=== PATIENT | male | born 1955 | race Caucasian/White ===

== ENCOUNTER 2022-05-05 12:33 | Inpatient (IN) | payer OTHER ==
[~2022-05-05] VITALS: Ht 167.6 cm; Wt 113.0 kg
[2022-05-05 12:35] VITALS: BP_SYST 125
[2022-05-05 13:41] LABS: BASOPHILS # (AUTO) 0.2 K/uL (0.0-0.2); BASOPHILS % (AUTO) 0.5 % (0.0-2.0); HEMATOCRIT 39.6 % (36-54); HEMOGLOBIN 13.1 g/dL (14.0-18.0); LYMPHOCYTES # (AUTO) 0.5 K/uL (1.0-5.5); LYMPHOCYTES % (AUTO) 1.8 % (20.5-51.5); MEAN CORPUSCULAR HEMOGLOBIN 33 pg (27-31); MEAN CORPUSCULAR HGB CONC 33 % (32-36); MEAN CORPUSCULAR VOLUME 99 fL (79.0-98.0); MONOCYTES # (AUTO) 1.9 K/uL (0.0-1.0); MONOCYTES % (AUTO) 6.5 % (1.7-9.3); NEUTROPHILS # (AUTO) 26.2 K/uL (1.8-7.7); PLATELET COUNT (AUTO) 186 K/uL (130-430); RED BLOOD CELL COUNT(AUTO) 4.02 MIL/uL (4.2-6.2); RED CELL DISTRIBUTION WIDTH 18.7 % (9.0-15.0); WHITE BLOOD COUNT (AUTO) 28.8 K/uL (4.8-10.8)
[2022-05-05] MEDS ORDERED: cefTRIAXone 1 GM in D5W 50 ML IV ONE (14:00)
[2022-05-05] MEDS ORDERED: DOXYCYCLINE HYCLATE 100 MG CAPSULE PO ONE (14:00)
[2022-05-05 14:14] LABS: ANION GAP 13 (5-15); CALCIUM 7.4 mg/dL (8.4-11.0); CHLORIDE 107 mmol/L (98-107); CREATININE 1.37 mg/dL (0.55-1.30); GLUCOSE 153 mg/dL (70-99); SODIUM SERUM 137 mmol/L (136-145); UREA NITROGEN, BLOOD 40 mg/dL (8-21)
[2022-05-05] MEDS ORDERED: AZITHROMYCIN 500 MG in NS 250 ML IV SCH (14:15)
[2022-05-05] MEDS ORDERED: cefTRIAXone 1 GM IVPB PREMIX 50 ML IV SCH (14:15)
[2022-05-05 14:28] LABS: ALANINE AMINOTRANSFERASE 168 U/L (12-78); ALBUMIN 3.2 g/dL (3.4-4.8); ASPARTATE AMINOTRANSFERASE 78 U/L (10-37); GFR AFRICAN AMERICAN 67 mL/min (>90); LIPASE 85 U/L (73-393); TOTAL BILIRUBIN 0.3 mg/dL (0.0-1.0)
[2022-05-05] MEDS ORDERED: cefTRIAXone 1 GM VIAL ONE (14:39)
[2022-05-05] MEDS ORDERED: FURO-150 PO (14:43)
[2022-05-05] MEDS ORDERED: ASPIRIN 325 MG TABLET PO ONE (14:45)
[2022-05-05] MEDS ORDERED: NITROGLYCERIN 0.4 MG TAB.SUBL SL ONE (14:45)
[2022-05-05] MEDS ORDERED: FUROSEMIDE 40 MG/4 ML VIAL IVP ONE (14:45)
[2022-05-05] MEDS ORDERED: ASPI-1155 PO (14:48)
[2022-05-05] MEDS ORDERED: LIP40 PO (14:48)
[2022-05-05 14:58] LABS: NEUTROPHILS % (AUTO) 91.2 % (40.0-70.0)
[2022-05-05] MEDS ORDERED: AZITHROMYCIN 500 MG/VIAL (ZITHROMAX) IV ONE (15:20)
[2022-05-05 20:45] VITALS: BP_SYST 121
[2022-05-05 23:00] VITALS: BP_SYST 104
[2022-05-06] VITALS (16 sets, daily range): BP systolic 95–136
[2022-05-06 04:58] LABS: BARBITURATE, URINE NEGATIVE (NEG <=200); BENZODIAZEPINE, URINE NEGATIVE (NEG <=150); CANNABINOID, URINE NEGATIVE (NEG <=50); COCAINE, URINE NEGATIVE (NEG <=150); METHAMPHETAMINES SCREEN,URINE POSITIVE (NEG <=500); OPIATE, URINE NEGATIVE (NEG <=100); PHENCYCLIDINE SCREEN,URINE NEGATIVE (NEG <=25); UR TRICYCLIC ANTIDEPRESSANTS NEGATIVE (NEG <=300); URINE AMPHETAMINE POSITIVE (NEG <=500); URINE METHADONE NEGATIVE (NEG <=200); URINE OXYCODONE SCREEN NEGATIVE (NEG <=100); URINE PROPOXYPHENE SCREEN NEGATIVE (NEG <=300)
[2022-05-06 06:41] LABS: BASOPHILS % (AUTO) 0.2 % (0.0-2.0); HEMATOCRIT 40.1 % (36-54); HEMOGLOBIN 13.2 g/dL (14.0-18.0); LYMPHOCYTES % (AUTO) 4.5 % (20.5-51.5); MEAN CORPUSCULAR HEMOGLOBIN 33 pg (27-31); MEAN CORPUSCULAR HGB CONC 33 % (32-36); MEAN CORPUSCULAR VOLUME 99 fL (79.0-98.0); MONOCYTES # (AUTO) 1.2 K/uL (0.0-1.0); MONOCYTES % (AUTO) 5.8 % (1.7-9.3); NEUTROPHILS % (AUTO) 89.5 % (40.0-70.0); PLATELET COUNT (AUTO) 192 K/uL (130-430); RED BLOOD CELL COUNT(AUTO) 4.07 MIL/uL (4.2-6.2); RED CELL DISTRIBUTION WIDTH 18.8 % (9.0-15.0); WHITE BLOOD COUNT (AUTO) 21.2 K/uL (4.8-10.8)
[2022-05-06 07:26] LABS: ALBUMIN 3.2 g/dL (3.4-4.8); CREATININE 1.14 mg/dL (0.55-1.30); POTASSIUM 3.7 mmol/L (3.5-5.1); TOTAL BILIRUBIN 0.4 mg/dL (0.0-1.0)
[2022-05-06] MEDS ORDERED: NS 500 ML IV ONE (09:45)
[2022-05-06] MEDS ORDERED: THEOPHYLLINE ANHYDROUS 200 MG CAP.ER.24H PO ONE (10:00)
[2022-05-06] MEDS: NACL 0.9% 1,000 ML IV SCH ×2 (10:04→20:54)
[2022-05-06 10:26] LABS: FREE T4 (FREE THYROXINE) 0.8 ng/dl (0.8-1.5); THYROID STIMULATING HORMONE 0.94 uIu/mL (0.36-3.74)
[2022-05-06] MEDS: cefTRIAXone 1 GM IVPB PREMIX 50 ML IV SCH (10:51)
[2022-05-06] MEDS: AZITHROMYCIN 500 MG in NS 250 ML IV SCH (11:20)
[2022-05-06] MEDS: THEOPHYLLINE ANHYDROUS 200 MG CAP.ER.24H PO SCH ×2 (14:07→22:11)
[2022-05-06 22:19] LABS: BILIRUBIN,URINE NEGATIVE (NEGATIVE); BLOOD, URINE NEGATIVE (NEGATIVE); CLARITY/URINE CLEAR (CLEAR); COLOR,URINE YELLOW (YELLOW); GLUCOSE,URINE NEGATIVE (NEGATIVE); KETONES,URINE NEGATIVE (NEGATIVE); LEUKOCYTE ESTERASE ,URINE NEGATIVE (NEGATIVE); NITRITE, URINE NEGATIVE (NEGATIVE); PROTEIN URINE NEGATIVE (NEGATIVE); UROBILINOGEN,URINE 0.2 (0.2-1.0)
[2022-05-07] VITALS (22 sets, daily range): BP systolic 98–135
[2022-05-07] MEDS: THEOPHYLLINE ANHYDROUS 200 MG CAP.ER.24H PO SCH ×3 (06:15→22:06)
[2022-05-07] MEDS: NACL 0.9% 1,000 ML IV SCH ×2 (06:16→16:07)
[2022-05-07 07:01] LABS: BASOPHILS % (AUTO) 0.3 % (0.0-2.0); EOSINOPHILS % (AUTO) 0.1 % (0.0-4.0); HEMATOCRIT 36.1 % (36-54); LYMPHOCYTES # (AUTO) 1.3 K/uL (1.0-5.5); LYMPHOCYTES % (AUTO) 9.6 % (20.5-51.5); MEAN CORPUSCULAR HEMOGLOBIN 33 pg (27-31); MEAN CORPUSCULAR HGB CONC 33 % (32-36); MEAN CORPUSCULAR VOLUME 99 fL (79.0-98.0); MONOCYTES # (AUTO) 1.1 K/uL (0.0-1.0); MONOCYTES % (AUTO) 7.9 % (1.7-9.3); NEUTROPHILS # (AUTO) 11.4 K/uL (1.8-7.7); NEUTROPHILS % (AUTO) 82.1 % (40.0-70.0); PLATELET COUNT (AUTO) 160 K/uL (130-430); RED BLOOD CELL COUNT(AUTO) 3.67 MIL/uL (4.2-6.2); RED CELL DISTRIBUTION WIDTH 18.8 % (9.0-15.0); WHITE BLOOD COUNT (AUTO) 13.9 K/uL (4.8-10.8)
[2022-05-07 07:07] LABS: CREATININE 1.03 mg/dL (0.55-1.30); POTASSIUM 3.4 mmol/L (3.5-5.1)
[2022-05-07 07:22] LABS: ALBUMIN 2.8 g/dL (3.4-4.8); THYROID STIMULATING HORMONE 4.4 uIu/mL (0.36-3.74); TOTAL BILIRUBIN 0.3 mg/dL (0.0-1.0)
[2022-05-07 08:34] LABS: CALCIUM 6.4 mg/dL (8.4-11.0)
[2022-05-07 09:24] LABS: INR 1.2 (0.80-1.20); PROTHROMBIN TIME 12.1 SECS (9.5-12.5)
[2022-05-07] MEDS ORDERED: POTASSIUM CHLORIDE 20 MEQ/PKT PACKET PO ONE (10:00)
[2022-05-07] MEDS: cefTRIAXone 1 GM IVPB PREMIX 50 ML IV SCH (10:09)
[2022-05-07] MEDS: AZITHROMYCIN 500 MG in NS 250 ML IV SCH (11:16)
[2022-05-08] VITALS (13 sets, daily range): BP systolic 102–144
[2022-05-08] MEDS: NACL 0.9% 1,000 ML IV SCH ×2 (01:43→03:30)
[2022-05-08] MEDS: THEOPHYLLINE ANHYDROUS 200 MG CAP.ER.24H PO SCH ×2 (06:04→12:54)
[2022-05-08 06:59] LABS: BASOPHILS % (AUTO) 0.3 % (0.0-2.0); EOSINOPHILS % (AUTO) 0.2 % (0.0-4.0); HEMOGLOBIN 12.6 g/dL (14.0-18.0); LYMPHOCYTES # (AUTO) 1.2 K/uL (1.0-5.5); MEAN CORPUSCULAR HEMOGLOBIN 33 pg (27-31); MEAN CORPUSCULAR HGB CONC 33 % (32-36); MEAN CORPUSCULAR VOLUME 99 fL (79.0-98.0); MONOCYTES # (AUTO) 0.8 K/uL (0.0-1.0); MONOCYTES % (AUTO) 6.8 % (1.7-9.3); NEUTROPHILS # (AUTO) 9.9 K/uL (1.8-7.7); NEUTROPHILS % (AUTO) 82.7 % (40.0-70.0); PLATELET COUNT (AUTO) 151 K/uL (130-430); RED BLOOD CELL COUNT(AUTO) 3.86 MIL/uL (4.2-6.2); RED CELL DISTRIBUTION WIDTH 18.5 % (9.0-15.0)
[2022-05-08 07:46] LABS: CREATININE 0.9 mg/dL (0.55-1.30); POTASSIUM 3.5 mmol/L (3.5-5.1)
[2022-05-08 07:57] LABS: ALBUMIN 2.8 g/dL (3.4-4.8); TOTAL BILIRUBIN 0.6 mg/dL (0.0-1.0)
[2022-05-08] MEDS ORDERED: LORazepam 1 MG TABLET PO PRN (08:45)
[2022-05-08 08:47] LABS: CALCIUM 6.3 mg/dL (8.4-11.0)
[2022-05-08] MEDS ORDERED: PHENYLEPHRINE HCL 0.5% NASAL 15 ML NASPR NS SCH (10:00)
[2022-05-08] MEDS: AZITHROMYCIN 500 MG in NS 250 ML IV SCH (10:59)
[2022-05-08] MEDS: cefTRIAXone 1 GM IVPB PREMIX 50 ML IV SCH (10:59)
== END 2022-05-08 18:30 | disposition short-term general hospital (02) | DRG 871 ==
LOC: SED 12:33 → STU 14:13 → SIC 20:50 → STU 20:50 → SIC 05-06 09:37
PROVIDERS: ADMIT Internal Medicine; ATTEND Internal Medicine
DX: A41.9 Sepsis, unspecified organism (principal); I21.A1 Myocardial infarction type 2; N17.0 Acute kidney failure with tubular necrosis; J18.9 Pneumonia, unspecified organism; I44.2 Atrioventricular block, complete; E44.0 Moderate protein-calorie malnutrition; Z68.41 Body mass index [BMI] 40.0-44.9, adult; I11.0 Hypertensive heart disease with heart failure; E66.01 Morbid (severe) obesity due to excess calories; Z20.822 Contact with and (suspected) exposure to COVID-19; F15.10 Other stimulant abuse, uncomplicated; E78.00 Pure hypercholesterolemia, unspecified; I50.9 Heart failure, unspecified; Z59.02 Unsheltered homelessness; Z86.16 Personal history of COVID-19; Z79.899 Other long term (current) drug therapy; Z79.82 Long term (current) use of aspirin; R65.20 Severe sepsis without septic shock
CPT/HCPCS: 36415; 71045; 80048; 80053; 80307; 81003; 83605; 83690; 83880; 84439; 84443; 84484; 85025; 85379; 85610-TC; 87040; 87086; 93005; 93306; 96365; 96368; 96375; 99291; G0378; J0456; J0696; J1940; J7050

== ENCOUNTER 2022-06-02 13:51 | Inpatient (IN) | payer OTHER ==
[~2022-06-02] VITALS: Ht 167.6 cm; Wt 97.5 kg
[~2022-06-02 13:51] MED LIST: ASPI-1155 PO; FURO-150 PO; LIP40 PO
[2022-06-02 13:55] VITALS: BP_SYST 92
[2022-06-02] MEDS ORDERED: NACL 0.9% 1,000 ML IV ONE (15:15)
[2022-06-02 15:17] LABS: HEMATOCRIT 42.8 % (36-54); HEMOGLOBIN 14.2 g/dL (14.0-18.0); MEAN CORPUSCULAR HEMOGLOBIN 33 pg (27-31); MEAN CORPUSCULAR HGB CONC 33 % (32-36); MEAN CORPUSCULAR VOLUME 98 fL (79.0-98.0); PLATELET COUNT (AUTO) 208 K/uL (130-430); RED BLOOD CELL COUNT(AUTO) 4.38 MIL/uL (4.2-6.2); WHITE BLOOD COUNT (AUTO) 23.3 K/uL (4.8-10.8)
[2022-06-02 15:21] LABS: CALCIUM 8.7 mg/dL (8.4-11.0); CREATININE 1.25 mg/dL (0.55-1.30); POTASSIUM 4.2 mmol/L (3.5-5.1)
[2022-06-02 15:27] LABS: ALBUMIN 3.3 g/dL (3.4-4.8); TOTAL BILIRUBIN 0.6 mg/dL (0.0-1.0)
[2022-06-02 15:46] LABS: BAND % (MANUAL) 8 % (0-6); BASOPHILS % (MANUAL) 0 % (0-2); EOSINOPHILS % (MANUAL) 1 % (0-7); LYMPHOCYTES % (MANUAL) 5 % (20-46); MONOCYTES % (MANUAL) 18 % (0-11)
[2022-06-02 17:44] LABS: BILIRUBIN,URINE NEGATIVE (NEGATIVE); BLOOD, URINE NEGATIVE (NEGATIVE); CLARITY/URINE CLEAR (CLEAR); COLOR,URINE YELLOW (YELLOW); GLUCOSE,URINE NEGATIVE (NEGATIVE); KETONES,URINE NEGATIVE (NEGATIVE); LEUKOCYTE ESTERASE ,URINE NEGATIVE (NEGATIVE); NITRITE, URINE NEGATIVE (NEGATIVE); PROTEIN URINE NEGATIVE (NEGATIVE); UROBILINOGEN,URINE 0.2 (0.2-1.0)
[2022-06-02] MEDS ORDERED: cefTRIAXone 2 GM VIAL ONE (18:13)
[2022-06-02] MEDS ORDERED: KCL 20 mEq in D5/0.45NS 1000mL 1,000 ML IV SCH (20:45)
[2022-06-03 00:24] VITALS: BP_SYST 111
[2022-06-03] MEDS ORDERED: KCL 20 mEq in D5/0.45NS 1000mL 1,000 ML IV ONE (02:15)
[2022-06-03] MEDS ORDERED: PIPERACILLIN/TAZOBACTAM 3.375 GM/VIAL (ZOSYN) IV ONE (02:31)
[2022-06-03] MEDS: ACETAMINOPHEN 325 MG TABLET PO PRN ×2 (02:42→08:10)
[2022-06-03] MEDS: PIPERACILLIN/TAZO 3.375/DEX-IS 50 ML IV SCH ×3 (02:44→17:16)
[2022-06-03 06:56] LABS: BASOPHILS # (AUTO) 0.2 K/uL (0.0-0.2); BASOPHILS % (AUTO) 0.9 % (0.0-2.0); EOSINOPHILS # (AUTO) 0.1 K/uL (0.0-0.4); EOSINOPHILS % (AUTO) 0.7 % (0.0-4.0); HEMATOCRIT 38.5 % (36-54); HEMOGLOBIN 13.1 g/dL (14.0-18.0); LYMPHOCYTES % (AUTO) 5.5 % (20.5-51.5); MEAN CORPUSCULAR HEMOGLOBIN 33 pg (27-31); MEAN CORPUSCULAR HGB CONC 34 % (32-36); MEAN CORPUSCULAR VOLUME 98 fL (79.0-98.0); MONOCYTES % (AUTO) 16.7 % (1.7-9.3); NEUTROPHILS # (AUTO) 13.6 K/uL (1.8-7.7); NEUTROPHILS % (AUTO) 76.2 % (40.0-70.0); PLATELET COUNT (AUTO) 181 K/uL (130-430); RED BLOOD CELL COUNT(AUTO) 3.95 MIL/uL (4.2-6.2); RED CELL DISTRIBUTION WIDTH 17.9 % (9.0-15.0); WHITE BLOOD COUNT (AUTO) 17.8 K/uL (4.8-10.8)
[2022-06-03 07:32] LABS: CALCIUM 8.1 mg/dL (8.4-11.0); CREATININE 0.86 mg/dL (0.55-1.30); POTASSIUM 3.9 mmol/L (3.5-5.1)
[2022-06-03 08:00] VITALS: BP_SYST 132
[2022-06-03] MEDS: ASPIRIN 81 MG TAB.CHEW PO SCH (08:08)
[2022-06-03] MEDS: FUROSEMIDE 20 MG TABLET PO SCH (08:08)
[2022-06-03 12:00] VITALS: BP_SYST 126
[2022-06-03] MEDS: KCL 20 mEq in D5/0.45NS 1000mL 1,000 ML IV SCH (15:00)
[2022-06-03 16:00] VITALS: BP_SYST 121
[2022-06-03] MEDS: CYCLOBENZAPRINE HCL 10 MG TABLET (FLEXERIL) PO PRN (16:47)
[2022-06-03 21:00] VITALS: BP_SYST 135
[2022-06-03] MEDS: ATORVASTATIN 20 MG TABLET PO SCH (21:17)
[2022-06-03] MEDS: ENOXAPARIN SODIUM 40 MG/0.4 ML SYRINGE SUBCUT SCH (21:17)
[2022-06-04 00:31] VITALS: BP_SYST 110
[2022-06-04] MEDS: PIPERACILLIN/TAZO 3.375/DEX-IS 50 ML IV SCH ×5 (01:08→23:04)
[2022-06-04] MEDS: KCL 20 mEq in D5/0.45NS 1000mL 1,000 ML IV SCH ×2 (06:18→17:10)
[2022-06-04 07:13] LABS: BASOPHILS # (AUTO) 0.1 K/uL (0.0-0.2); BASOPHILS % (AUTO) 0.8 % (0.0-2.0); EOSINOPHILS # (AUTO) 0.1 K/uL (0.0-0.4); HEMOGLOBIN 13.5 g/dL (14.0-18.0); LYMPHOCYTES # (AUTO) 1.1 K/uL (1.0-5.5); LYMPHOCYTES % (AUTO) 9.8 % (20.5-51.5); MEAN CORPUSCULAR HEMOGLOBIN 33 pg (27-31); MEAN CORPUSCULAR HGB CONC 34 % (32-36); MEAN CORPUSCULAR VOLUME 98 fL (79.0-98.0); MONOCYTES # (AUTO) 1.4 K/uL (0.0-1.0); MONOCYTES % (AUTO) 12.3 % (1.7-9.3); NEUTROPHILS # (AUTO) 8.6 K/uL (1.8-7.7); NEUTROPHILS % (AUTO) 76.1 % (40.0-70.0); PLATELET COUNT (AUTO) 195 K/uL (130-430); RED BLOOD CELL COUNT(AUTO) 4.09 MIL/uL (4.2-6.2); RED CELL DISTRIBUTION WIDTH 18.3 % (9.0-15.0); WHITE BLOOD COUNT (AUTO) 11.2 K/uL (4.8-10.8)
[2022-06-04 07:49] LABS: CREATININE 0.8 mg/dL (0.55-1.30)
[2022-06-04 08:02] VITALS: BP_SYST 98
[2022-06-04] MEDS: ASPIRIN 81 MG TAB.CHEW PO SCH (08:29)
[2022-06-04] MEDS: FUROSEMIDE 20 MG TABLET PO SCH (08:30)
[2022-06-04] MEDS: CYCLOBENZAPRINE HCL 10 MG TABLET (FLEXERIL) PO PRN ×2 (08:34→21:59)
[2022-06-04 11:59] VITALS: BP_SYST 95
[2022-06-04 15:51] VITALS: BP_SYST 99
[2022-06-04 21:00] VITALS: BP_SYST 132
[2022-06-04] MEDS: ATORVASTATIN 20 MG TABLET PO SCH (21:59)
[2022-06-04] MEDS: ENOXAPARIN SODIUM 40 MG/0.4 ML SYRINGE SUBCUT SCH (21:59)
[2022-06-04 23:00] VITALS: BP_SYST 132
[2022-06-05] VITALS: BP_SYST 135
[2022-06-05] MEDS: PIPERACILLIN/TAZO 3.375/DEX-IS 50 ML IV SCH ×3 (05:12→17:14)
[2022-06-05] MEDS: KCL 20 mEq in D5/0.45NS 1000mL 1,000 ML IV SCH ×2 (05:14→21:19)
[2022-06-05 07:07] LABS: CALCIUM 8.8 mg/dL (8.4-11.0); CREATININE 0.92 mg/dL (0.55-1.30); POTASSIUM 3.9 mmol/L (3.5-5.1)
[2022-06-05 07:08] LABS: EOSINOPHILS # (AUTO) 0.1 K/uL (0.0-0.4); EOSINOPHILS % (AUTO) 1.4 % (0.0-4.0); HEMATOCRIT 41.4 % (36-54); HEMOGLOBIN 14.2 g/dL (14.0-18.0); LYMPHOCYTES # (AUTO) 1.1 K/uL (1.0-5.5); LYMPHOCYTES % (AUTO) 12.6 % (20.5-51.5); MEAN CORPUSCULAR HEMOGLOBIN 33 pg (27-31); MEAN CORPUSCULAR HGB CONC 34 % (32-36); MEAN CORPUSCULAR VOLUME 97 fL (79.0-98.0); MONOCYTES % (AUTO) 11.8 % (1.7-9.3); PLATELET COUNT (AUTO) 193 K/uL (130-430); RED BLOOD CELL COUNT(AUTO) 4.25 MIL/uL (4.2-6.2); WHITE BLOOD COUNT (AUTO) 8.6 K/uL (4.8-10.8)
[2022-06-05 07:23] LABS: BASOPHILS % (AUTO) 0.8 % (0.0-2.0); NEUTROPHILS % (AUTO) 73.4 % (40.0-70.0)
[2022-06-05 07:24] LABS: BASOPHILS # (AUTO) 0.1 K/uL (0.0-0.2); NEUTROPHILS # (AUTO) 6.3 K/uL (1.8-7.7)
[2022-06-05 08:00] VITALS: BP_SYST 140
[2022-06-05] MEDS: FUROSEMIDE 20 MG TABLET PO SCH (08:57)
[2022-06-05] MEDS: ASPIRIN 81 MG TAB.CHEW PO SCH (08:57)
[2022-06-05 12:00] VITALS: BP_SYST 125
[2022-06-05 16:00] VITALS: BP_SYST 125
[2022-06-05 20:00] VITALS: BP_SYST 125
[2022-06-05] MEDS: ATORVASTATIN 20 MG TABLET PO SCH (21:17)
[2022-06-05] MEDS: ENOXAPARIN SODIUM 40 MG/0.4 ML SYRINGE SUBCUT SCH (21:18)
[2022-06-06] VITALS: BP_SYST 110
[2022-06-06] MEDS: PIPERACILLIN/TAZO 3.375/DEX-IS 50 ML IV SCH ×2 (00:17→06:03)
[2022-06-06 04:00] VITALS: BP_SYST 118
[2022-06-06 08:00] VITALS: BP_SYST 120
[2022-06-06] MEDS: ASPIRIN 81 MG TAB.CHEW PO SCH (09:09)
[2022-06-06] MEDS: FUROSEMIDE 20 MG TABLET PO SCH (09:10)
[2022-06-06] MEDS: KCL 20 mEq in D5/0.45NS 1000mL 1,000 ML IV SCH (09:10)
[2022-06-06 12:00] VITALS: BP_SYST 120
[2022-06-06] MEDS: ceFAZolin SODIUM 1 GM in D5W 50 ML IV SCH ×2 (14:00→21:49)
[2022-06-06 16:00] VITALS: BP_SYST 120
[2022-06-06 20:00] VITALS: BP_SYST 103
[2022-06-06] MEDS: ATORVASTATIN 20 MG TABLET PO SCH (20:25)
[2022-06-06] MEDS: ENOXAPARIN SODIUM 40 MG/0.4 ML SYRINGE SUBCUT SCH (20:25)
[2022-06-06] MEDS: ACETAMINOPHEN 325 MG TABLET PO PRN (23:57)
[2022-06-07] VITALS: BP_SYST 110
[2022-06-07 04:00] VITALS: BP_SYST 114
[2022-06-07] MEDS: KCL 20 mEq in D5/0.45NS 1000mL 1,000 ML IV SCH ×3 (05:24→23:11)
[2022-06-07] MEDS: ceFAZolin SODIUM 1 GM in D5W 50 ML IV SCH ×3 (05:25→20:57)
[2022-06-07 08:10] VITALS: BP_SYST 107
[2022-06-07] MEDS: ASPIRIN 81 MG TAB.CHEW PO SCH (08:26)
[2022-06-07] MEDS: FUROSEMIDE 20 MG TABLET PO SCH (08:27)
[2022-06-07 12:00] VITALS: BP_SYST 110
[2022-06-07 16:00] VITALS: BP_SYST 105
[2022-06-07 20:00] VITALS: BP_SYST 102
[2022-06-07] MEDS: ATORVASTATIN 20 MG TABLET PO SCH (20:56)
[2022-06-07] MEDS: ENOXAPARIN SODIUM 40 MG/0.4 ML SYRINGE SUBCUT SCH (20:56)
[2022-06-08] VITALS (9 sets, daily range): BP systolic 12–123
[2022-06-08] MEDS: ceFAZolin SODIUM 1 GM in D5W 50 ML IV SCH ×3 (05:25→21:27)
[2022-06-08 06:31] LABS: BASOPHILS # (AUTO) 0.1 K/uL (0.0-0.2); BASOPHILS % (AUTO) 0.5 % (0.0-2.0); EOSINOPHILS # (AUTO) 0.1 K/uL (0.0-0.4); HEMOGLOBIN 13.7 g/dL (14.0-18.0); LYMPHOCYTES # (AUTO) 1.5 K/uL (1.0-5.5); LYMPHOCYTES % (AUTO) 14.7 % (20.5-51.5); MEAN CORPUSCULAR HEMOGLOBIN 33 pg (27-31); MEAN CORPUSCULAR HGB CONC 34 % (32-36); MEAN CORPUSCULAR VOLUME 98 fL (79.0-98.0); MONOCYTES # (AUTO) 1.2 K/uL (0.0-1.0); MONOCYTES % (AUTO) 12.3 % (1.7-9.3); NEUTROPHILS # (AUTO) 7.3 K/uL (1.8-7.7); NEUTROPHILS % (AUTO) 71.5 % (40.0-70.0); PLATELET COUNT (AUTO) 212 K/uL (130-430); RED BLOOD CELL COUNT(AUTO) 4.09 MIL/uL (4.2-6.2); RED CELL DISTRIBUTION WIDTH 17.9 % (9.0-15.0); WHITE BLOOD COUNT (AUTO) 10.1 K/uL (4.8-10.8)
[2022-06-08 08:00] LABS: ANION GAP 9 (5-15); C-REACTIVE PROTEIN QUANT 1.1 mg/dL (0-0.5); CALCIUM 8.5 mg/dL (8.4-11.0); CHLORIDE 104 mmol/L (98-107); CREATININE 0.78 mg/dL (0.55-1.30); GLUCOSE 90 mg/dL (70-99); POTASSIUM 3.7 mmol/L (3.5-5.1); SODIUM SERUM 139 mmol/L (136-145); UREA NITROGEN, BLOOD 11 mg/dL (8-21)
[2022-06-08 08:02] LABS: GFR AFRICAN AMERICAN 128 mL/min (>90)
[2022-06-08] MEDS: FUROSEMIDE 20 MG TABLET PO SCH (08:24)
[2022-06-08] MEDS: ASPIRIN 81 MG TAB.CHEW PO SCH (08:24)
[2022-06-08] MEDS ORDERED: NS 500 ML IV ONE (12:00)
[2022-06-08] MEDS: KCL 20 mEq in D5/0.45NS 1000mL 1,000 ML IV SCH (15:26)
[2022-06-08] MEDS: ENOXAPARIN SODIUM 40 MG/0.4 ML SYRINGE SUBCUT SCH (21:27)
[2022-06-08] MEDS: ATORVASTATIN 20 MG TABLET PO SCH (21:27)
== END 2022-06-08 23:42 | DRG 549 ==
LOC: SED 13:51 → SMU 20:38
PROVIDERS: ADMIT Family Medicine; ATTEND Family Medicine
DX: M00.9 Pyogenic arthritis, unspecified (principal); E44.1 Mild protein-calorie malnutrition; M60.851 Other myositis, right thigh; I10 Essential (primary) hypertension; E78.5 Hyperlipidemia, unspecified; M16.11 Unilateral primary osteoarthritis, right hip; E66.01 Morbid (severe) obesity due to excess calories; E78.00 Pure hypercholesterolemia, unspecified; E11.9 Type 2 diabetes mellitus without complications; Z20.822 Contact with and (suspected) exposure to COVID-19; K57.90 Diverticulosis of intestine, part unspecified, without perforation or abscess without bleeding; M19.90 Unspecified osteoarthritis, unspecified site; Z68.34 Body mass index [BMI] 34.0-34.9, adult; Z79.899 Other long term (current) drug therapy; Z79.82 Long term (current) use of aspirin
CPT/HCPCS: 36415; 71045; 72192-TC; 76376; 80048; 80053; 81003; 83605; 83735; 85007; 85025; 85027; 85651-TC; 86140; 87040; 87081; 93005; 93971; 96365; 99285; J0690; J0696; J1650; J2543; J7060